=== PATIENT | male | born 1950 | race Two or more races ===

== ENCOUNTER 2025-05-07 15:20 | Emergency (ER) | payer OTHER ==
[~2025-05-07] VITALS: Ht 175.3 cm; Wt 117.9 kg
[2025-05-07] MEDS ORDERED: VASOTEC2.5 MG (16:46)
[2025-05-07] MEDS ORDERED: LIPITOR40 MG (16:47)
[2025-05-07] MEDS ORDERED: PROSCAR5 MG (16:47)
[2025-05-07] MEDS ORDERED: IRBESARTAN-HCT1 EACH (16:47)
[2025-05-07] MEDS ORDERED: TAMS0.4C (16:48)
[2025-05-07] MEDS ORDERED: SYNTHROID150 MCG (16:48)
[2025-05-07] MEDS ORDERED: FAMOTIDINE/PF 20 MG in 0.9 % SODIUM CHLORIDE 8 ML IV PUSH ONE (18:15)
[2025-05-07] MEDS ORDERED: ACETAMINOPHEN 500 MG GEL..CAP PO ONE ×2 (18:15→19:44)
[2025-05-07] MEDS ORDERED: VANCOMYCIN HCL 1,000 MG VIAL IV ONE (18:15)
[2025-05-07] MEDS ORDERED: VANCOMYCIN HCL 1,000 MG VIAL ONE (19:44)
[2025-05-07] MEDS ORDERED: FAMOTIDINE/PF 20 MG/2 ML VIAL ONE (19:44)
[2025-05-07 20:21] LABS: BASO % 0.5 % (0.1-1.2); EOS # 0.16 (0.04-0.54); EOS % 2.8 % (0.7-7.0); LYMPH # 1.04 (1.18-3.74); LYMPH % 18.0 % (19.3-53.1); MEAN PLATELET VOLUME 9.10 fl (9.4-12.4); MONO # 0.67 (0.24-0.82); MONO % 11.6 % (4.7-12.5); NEUT # 3.86 (1.56-6.13); NEUT % 66.9 % (34.0-71.1); RED CELL DISTRIBUTION WIDTH 13.2 % (11.6-14.4)
[2025-05-07 20:27] LABS: ERYTHROCYTE SEDIMENTATION RATE 40 mm/hr (0-20)
[2025-05-07 20:52] LABS: INR 1.06
[2025-05-07 21:04] LABS: ALT/SGPT 30.0 U/L (12-78); AST/SGOT 18.0 U/L (15-37); BILIRUBIN TOTAL 0.47 mg/dL (0.3-1.2); BUN CREA RATIO 23.0 (7.0-25.0); CREATININE SERUM 0.81 mg/dL (0.70-1.30); GFR 92.65; GLOBULINA 4.2 G/DL (2.4-3.5); GLUCOSE FASTING 98.0 mg/dL (65-100); OSMOLALITY SERUM 283.0 MOSM/KG (275-295)
[2025-05-07 21:11] LABS: URINE APPEARANCE Clear; URINE BILIRRUBIN Negative (NEGATIVE); URINE BLOOD Negative; URINE COLOR Yellow; URINE GLUCOSE Negative (NEGATIVE); URINE KETONE Negative (NEGATIVE); URINE LEUKOCYTE Trace; URINE NITRATE Negative; URINE PROTEIN Trace (NEGATIVE); URINE UROBILINOGEN 0.2 E.U./dl
[2025-05-07 21:12] LABS: URINE BACTERIA 8.0 uL (0.0-1933); URINE EPITHELIAL CELLS 5.9 uL (0.0-38.8); URINE RBC 11.4 uL (0.0-20.8); URINE WBC 21.6 uL (0.0-23.2)
[2025-05-07 21:14] LABS: URINE CAST 0.14 uL (0.0-1.40)
[2025-05-08] MEDS ORDERED: INTESTINEX680 M1 PO (00:45)
[2025-05-08] MEDS ORDERED: MUPIROCIN15 GM TOP (00:45)
[2025-05-08] MEDS ORDERED: MONDOXYNE NL100 MG PO (00:45)
[2025-05-08] MEDS ORDERED: PEPCID AC20 MG PO (00:45)
== END 2025-05-08 01:36 | disposition home or self-care (01) ==
LOC: ER 15:21
PROVIDERS: General Practice
DX: L03.314 Cellulitis of groin (principal); Z88.0 Allergy status to penicillin; E03.8 Other specified hypothyroidism; Z85.528 Personal history of other malignant neoplasm of kidney; I10 Essential (primary) hypertension; E66.89 Other obesity not elsewhere classified; E11.9 Type 2 diabetes mellitus without complications
CPT/HCPCS: 36415; 96365; 99282; J3490